=== PATIENT | male | born 2000 | race Caucasian/White ===

== ENCOUNTER 2018-05-23 23:20 | Emergency (ER) | payer BC ==
[~2018-05-23] VITALS: Ht 185.4 cm; Wt 77.0 kg
[2018-05-24 00:20] VITALS: BP 122/70
== END 2018-05-24 00:35 | disposition home or self-care (01) ==
LOC: EME 23:20
DX: S93.402A Sprain of unspecified ligament of left ankle, initial encounter (principal); W51.XXXA Accidental striking against or bumped into by another person, initial encounter; Y93.67 Activity, basketball
CPT/HCPCS: 73610; 99281; 99284